=== PATIENT | male | born 1965 | race Caucasian/White ===

== ENCOUNTER → 2016-09-29 | Outpatient (CLI) | payer BC ==
[~2016-09-29] VITALS: Ht 185.4 cm; Wt 106.8 kg
[~2016-09-29] MED LIST: SIMV40TA2 PO
[2016-09-29 12:13] VITALS: BP 153/91; PULSE 77; Ht 185.4 cm; Wt 106.8 kg
== END | disposition home or self-care (01) ==
LOC: C.NEUR 11:45
PROVIDERS: ATTEND Internal Medicine Pulmonary Disease
DX: R53.83 Other fatigue (principal); I10 Essential (primary) hypertension; R06.83 Snoring

== ENCOUNTER → 2016-10-20 | Outpatient (CLI) | payer BC ==
--- NOTE | 2016-10-24 12:58 | POLYSOMNOGRAPH REPORT ---
CLINICAL DATA: A 51-year-old male with BMI of 31 referred for a history of snoring, fragmented sleep and mild daytime fatigue. On the evening of 10/20/2016, a home sleep apnea test was performed using a Yodlee type 3 monitor. RECORDING RESULTS: Total recording time was 10 hours. The patient's monitoring time and estimated sleep time was 9.9 hours. RESPIRATORY DATA: Very mild sleep apnea was noted. The MATTHEW was 7.9. There were 10 obstructive, 15 mixed, and 31 central apneic episodes. There were 22 hypopneic episodes. The longest respiratory event was 42 seconds. OXIMETRY DATA: Nocturnal hypoxemia was seen. Oxygen skip was 81%. Mean saturation was 94%. Time below 89% was 7 minutes. HEART RATE DATA: Heart rates ranged from 40 to 65 beats per minute. SNORING DATA: Snoring was recorded throughout the night. INTELLIGENT SYSTEMS ENGINEER'S COMMENTS: The patient had apneas and hypopneas primarily central or mixed and occurring while he was on his back. IMPRESSION: Very mild sleep apnea/hypopnea with at MATTHEW of 7.9 with transient nocturnal hypoxemia. The patient had majority of his apneic episodes occurring while on his back and the majority were central apneic episodes of unclear etiology. RECOMMENDATIONS: The patient may benefit from positional therapy, weight loss, use of an oral appliance, or CPAP. Clinical correlation is needed. VARGAS
== END | disposition home or self-care (01) ==
LOC: C.NEUR 09:08
PROVIDERS: ATTEND Internal Medicine Pulmonary Disease
DX: R06.83 Snoring (principal); G47.10 Hypersomnia, unspecified

== ENCOUNTER → 2016-11-10 | Outpatient (CLI) | payer BC ==
[~2016-11-10] VITALS: Ht 185.4 cm; Wt 107.3 kg
[2016-11-10 15:43] VITALS: BP 147/90; PULSE 80; Ht 185.4 cm; Wt 107.3 kg
== END | disposition home or self-care (01) ==
LOC: C.NEUR 14:09
PROVIDERS: ATTEND Physician Assistant Medical
DX: G47.30 Sleep apnea, unspecified (principal); E66.9 Obesity, unspecified; Z68.31 Body mass index [BMI] 31.0-31.9, adult; I10 Essential (primary) hypertension

== ENCOUNTER → 2016-11-10 | Outpatient (CLI) | payer BC ==
[2016-11-10 12:59] LABS: ALT/SGPT 45 U/L (12-78); BLOOD UREA NITROGEN 20 mg/dl (7-18); BUN/CREATININE RATIO 19.8 (10-20); CALCIUM 9.2 mg/dl (8.5-10.1); CARBON DIOXIDE 25 mmol/L (21-32); CHLORIDE 105 mmol/L (98-107); CHOLESTEROL 206 mg/dl (0-200); GLUCOSE 109 mg/dl (70-99); POTASSIUM 3.7 mmol/L (3.5-5.1); SODIUM 140 mmol/L (136-145); TRIGLYCERIDES 194 mg/dl (0-150); VERY LOW DENSITY LIPOPROT CALC 39 mg/dl
[2016-11-10 13:02] LABS: ALB/GLOB RATIO 1.3 (0.9-2); ALKALINE PHOSPHATASE 95 U/L (45-117); AST/SGOT 31 U/L (15-37); CHOLESTEROL/HDL RATIO 3.3; HDL CHOLESTEROL 62 mg/dl; LDL CHOLESTEROL CALCULATED 105 mg/dl
== END | disposition home or self-care (01) ==
LOC: C.LABBFT 09:53
PROVIDERS: ATTEND Family Medicine
DX: E78.00 Pure hypercholesterolemia, unspecified (principal); R73.01 Impaired fasting glucose; I10 Essential (primary) hypertension; E55.9 Vitamin D deficiency, unspecified

== ENCOUNTER → 2017-06-15 | Outpatient (CLI) | payer OTHER ==
[2017-06-15 13:00] LABS: ALBUMIN 4.3 gm/dl (3.4-5.0); ALT/SGPT 52 U/L (12-78); AST/SGOT 40 U/L (15-37); BLOOD UREA NITROGEN 22 mg/dl (7-18); CALCIUM 9.1 mg/dl (8.5-10.1); CARBON DIOXIDE 29 mmol/L (21-32); GLUCOSE 110 mg/dl (70-99); POTASSIUM 3.4 mmol/L (3.5-5.1); SODIUM 138 mmol/L (136-145)
[2017-06-15 13:11] LABS: ALKALINE PHOSPHATASE 91 U/L (45-117); CHOLESTEROL 166 mg/dl (0-200); LDL CHOLESTEROL CALCULATED 73 mg/dl; TOTAL PROTEIN 7.7 gm/dl (6.4-8.2)
== END | disposition home or self-care (01) ==
LOC: C.LABBFT 08:45
PROVIDERS: ATTEND Family Medicine
DX: E78.00 Pure hypercholesterolemia, unspecified (principal); R73.01 Impaired fasting glucose; I10 Essential (primary) hypertension; E55.9 Vitamin D deficiency, unspecified; G47.30 Sleep apnea, unspecified

== ENCOUNTER → 2017-07-08 | Day surgery (SDC) | payer BC, OTHER ==
[~2017-07-08] VITALS: Ht 185.4 cm; Wt 105.9 kg
[~2017-07-08] MED LIST changes: +CHOL2000 PO; +HYDR25TA4 PO; +LIDOCAINE HCL 2% 2 ML VIAL (20MG/ML) ONE; +POTA10CA28 PO; +PROPOFOL IV EMULSION 10 MG/ML 20 ML VIAL ONE; +SODIUM CHLORIDE 0.9% 500ML 500 ML IV ONE
[2017-07-08 14:16] VITALS: Ht 185.4 cm; Wt 105.9 kg
--- NOTE | 2017-07-08 15:01 | Endo History and Physical ---
History & Physical Date of Service: July 08, 2017. Chief Complaint: SCREENING FOR COLON CANCER Referring Physician: DR. BIANCHI History of Present Illness 51 yo CM who presents for screening colonoscopy. Past Medical History High Cholesterol Past Surgical History Hx Cardiac Surgery: No Hx Internal Defibrillator: No Hx Pacemaker: No Hx Abdominal Surgery: No Hx of Implantable Prosthesis: No Hx Post-Op Nausea and Vomiting: No Hx Cancer Surgery: No Hx Thoracic Surgery: No Hx Orthopedic: No Hx Urinary Tract Surgery: Yes (HYDROCELE R TESTICLE) Family History None Social History Smoking Status: Never Smoker Hx Substance Use: No Hx Alcohol Use: Yes (10 DRINKS PER WEEK) Allergies Coded Allergies: No Known Allergies (Verified , 07/08/17) Current Medications Reported Home Medications Medications Dose Route/Sig Max Daily Dose Days Date Category Vitamin D3 (Cholecalciferol) 2,000 Unit Cap 1 Cap PO DAILY 30 06/29/17 Reported Micro-K Ext Rel (Potassium Chloride) 10 Meq Capcr 10 Meq PO DAILY 06/29/17 Reported Hctz (Hydrochlorothiazide) 25 Mg Tab 1 Tab PO DAILY 30 06/29/17 Reported Zocor (Simvastatin) 40 Mg Tab 40 Mg PO QPM 10/18/14 Reported Vital Signs Weight (Kilograms): 105.91 Height (Feet): 6 Height (Inches): 1 Date Time Temp Pulse Resp B/P (MAP) Pulse Ox O2 Delivery O2 Flow Rate FiO2 07/08/17 14:23 36.6 81 20 165/87 (113) 95 Room Air Physical Exam General Appearance: WD/WN, no apparent distress Respiratory/Chest: Auscultation: breath sounds normal Cardiovascular: Heart Auscultation: RRR Abdomen: Bowel Sounds: normal Inspection & Palpation: soft, non-distended, no tenderness, guarding & rebound Assessment and Plan Assessment: 51 yo CM who presents for screening colonoscopy. Plan: Proceed with colonoscopy.
--- NOTE | 2017-07-08 15:38 | Anesthesiology Progress Note ---
Anesthesia Post Op Note Date & Time July 08, 2017 at 15:38 Vital Signs Pain Intensity: 0 Vital Signs Past 12 Hours Date Time Temp Pulse Resp B/P (MAP) Pulse Ox O2 Delivery O2 Flow Rate FiO2 07/08/17 14:23 36.6 81 20 165/87 (113) 95 Room Air Notes Mental Status: alert / awake / arousable, participated in evaluation Pt Amnestic to Procedure: Yes Nausea / Vomiting: adequately controlled Pain: adequately controlled Airway Patency, RR, SpO2: stable & adequate BP & HR: stable & adequate Hydration State: stable & adequate Anesthetic Complications: no major complications apparent
--- NOTE | 2017-07-08 15:39 | GI REPORT ---
Patient Name: Sebas Panchal Procedure Date: 07/08/2017 2:41 PM Date of : 1965 Admit Type: Outpatient Age: 51 Gender: Male Attending MD: Bert Prado DO Procedure: Colonoscopy Providers: Bert Prado DO Referring MD: Christi Atkins Indications: Screening for colorectal malignant neoplasm Medicines: Monitored Anesthesia Care Complications: No immediate complications. Estimated Blood Loss: Estimated blood loss: none. Procedure: Pre-Anesthesia Assessment: - Prior to the procedure, a History and Physical was performed, and patient medications and allergies were reviewed. The patient's tolerance of previous anesthesia was also reviewed. The risks and benefits of the procedure and the sedation options and risks were discussed with the patient. All questions were answered, and informed consent was obtained. Prior Anticoagulants: The patient has taken no previous anticoagulant or antiplatelet agents. ASA Grade Assessment: II - A patient with mild systemic disease. After reviewing the risks and benefits, the patient was deemed in satisfactory condition to undergo the procedure. After I obtained informed consent, the scope was passed under direct vision. Throughout the procedure, the patient's blood pressure, pulse, and oxygen saturations were monitored continuously. The scope was introduced through the anus and advanced to the terminal ileum. The colonoscopy was performed without difficulty. The patient tolerated the procedure well. The quality of the bowel preparation was good. The terminal ileum, ileocecal valve, appendiceal orifice, and rectum were photographed. Findings: The perianal and digital rectal examinations were normal. A 5 mm polyp was found in the sigmoid colon. The polyp was sessile. The polyp was removed with a cold snare. Resection and retrieval were complete. Impression: - One 5 mm polyp in the sigmoid colon, removed with a cold snare. Resected and retrieved. Recommendation: - Resume previous diet. - Continue present medications. - Repeat colonoscopy for surveillance based on pathology results. - Return to primary care physician as previously scheduled. Bert Prado DO 07/08/2017 3:38:46 PM This report has been signed electronically. Note Initiated On: 07/08/2017 2:41 PM Number of Addenda: 0 I attest to the content of the Intraoperative Record and orders documented therein, exceptions below {[id number]}
[2017-07-08 16:01] VITALS: BP 128/84; PULSE 70; O2SAT 95
--- NOTE | 2017-07-08 16:02 | Discharge Instructions ---
Endoscopy Patient Instructions Date / Procedure(s) Performed July 08, 2017. Colonoscopy Allergy Information Coded Allergies: No Known Allergies (Verified , 07/08/17) Discharge Date / Findings July 08, 2017. Colon polyp Medication Instructions OK to resume all medications today as prescribed Reported Home Medications Medications Dose Route/Sig Max Daily Dose Days Date Category Vitamin D3 (Cholecalciferol) 2,000 Unit Cap 1 Cap PO DAILY 30 06/29/17 Reported Micro-K Ext Rel (Potassium Chloride) 10 Meq Capcr 10 Meq PO DAILY 06/29/17 Reported Hctz (Hydrochlorothiazide) 25 Mg Tab 1 Tab PO DAILY 30 06/29/17 Reported Zocor (Simvastatin) 40 Mg Tab 40 Mg PO QPM 10/18/14 Reported Provider Instructions Activity Restrictions - No exercising or heavy lifting for 24 hours. - Do not drink alcohol the day of the procedure. - Do not drive a car or operate machinery until the day after the procedure. - Do not make any important decisions or sign important papers in 24 hours after the procedure. Following Day: - Return to full activity which may include returning to work/school. Diet Start your diet with liquids and light foods (jello, soup, juice, toast). Then eat your usual diet if not nauseated. Treatment For Common After Affects For mild abdominal pain, bloating, or excessive gas: - Rest - Eat lightly - Lie on right side Follow-Up Information Follow-up with DR. BIANCHI as scheduled Anesthesia Information What You Should Know You have had a procedure that required some medicine to reduce anxiety and discomfort. This treatment is called moderate sedation. After receiving the treatment, you may be sleepy, but you will be able to breathe on your own. The effects of the treatment may last for several hours. Follow these instructions along with Activity/Diet recommendations noted above: * Do NOT do anything where dizziness or clumsiness would be dangerous. * Rest quietly at home today, then you can be up and about tomorrow. * Have a responsible person stay with you the rest of today. * You may have had an I.V. today. If so, you may take the dressing off later today. Recommendations Call your doctor if: * Trouble breathing * Continuous vomiting for more than 24 hours * Temperature above 101 degrees * Severe abdominal pain or bloating * Pain not relieved by pain medicine ordered * There is increased drainage or redness from any incision * A large amount of rectal bleeding greater than 2-3 tablespoons. (If you had a polyp/s removed or have hemorrhoids, a small amount of blood - from the rectum is to be expected.) * You have any unanswered questions or concerns. IN THE EVENT OF A SERIOUS EMERGENCY, GO TO THE NEAREST EMERGENCY ROOM Your discharge instructions were prepared by provider Bert Prado. Patient Instructions Signature Page Sebas Panchal Patient (or Guardian) Signature/Date: I have read and understand the instructions given to me by my caregivers. Caregiver/RN/Doctor Signature/Date: The above-named patient and/or guardian has received patient instructions on this date. + Original Patient Signature Page (only) stays with chart. Please make copy for patient.
== END | disposition home or self-care (01) ==
LOC: C.GI 13:44
PROVIDERS: ATTEND Internal Medicine
DX: Z12.11 Encounter for screening for malignant neoplasm of colon (principal); D12.5 Benign neoplasm of sigmoid colon; I10 Essential (primary) hypertension; E78.5 Hyperlipidemia, unspecified; E66.9 Obesity, unspecified